=== PATIENT | male | born 1995 | race Caucasian/White ===

== ENCOUNTER 2022-01-21 13:27 | Emergency (ER) | payer OTHER, SELFPAY ==
--- NOTE | ~2022-01-21 | CT_ITS ---
EXAMINATION: CT brain wo con INDICATION: Headache COMPARISON: None TECHNIQUE: Standard unenhanced head CT. The dose-length product (DLP) was 605.33 mGy-cm. The mA was a djusted according to patient size. Iterative reconstruction technique was employed. FINDINGS: There is no intracranial hemorrhage, acute infarction, or abnormal mass lesion. The ventric les are normal. There is no abnormal mass effect or midline shift. The cuellar-white matter differentiat ion is normal. The basal cisterns are patent. The orbits are normal. The paranasal sinuses, mastoids and calvarium are normal. IMPRESSION: 1. No acute intracranial abnormality. Reviewed, dictated and finalized at location F.
[2022-01-21 13:35] VITALS: BP 148/95; PULSE 87; RESP 16; TEMP 36.8; O2SAT 100
--- NOTE | 2022-01-21 15:16 | ED.HA ---
HPI - Headache General Chief Complaint: Headache Stated Complaint: headache Time Seen by Provider: 01/21/22 15:01 History of Present Illness HPI Narrative: 26-year-old male presents emergency room for evaluation of gradual onset right frontal headache. Patient states headache began 6 days ago [place] Patient states that headache is sensitive to light and is not associated with any nausea. Patient denies any injury or trauma. Patient states that he has been seen by his primary care physician and was prescribed meloxicam without any relief of symptoms. Patient describes the pain as sharp and throbbing. No visual or hearing changes Related Data Allergies Allergy/AdvReac Type Severity Reaction Status Date / Time No Known Allergies Allergy Unverified 01/13/17 07:24 Review of Systems Review of Systems: CONSTITUTIONAL: Denies fever, chills, or sweats. EYES: Denies visual changes, redness, or discharge. ENT: Denies rhinorrhea, congestion, sore throat, or otalgia. CARDIOVASCULAR: Denies chest pain, palpitations, or edema. RESPIRATORY: Denies cough or dyspnea. GASTROINTESTINAL: Denies abdominal pain, nausea, vomiting, or diarrhea. GENITOURINARY: Denies dysuria or hematuria. SKIN: Denies rash or itching. MUSCULOSKELETAL: Denies back pain, joint pain, or myalgia. NEUROLOGIC: Reports headache PSYCHIATRIC: Denies anxiety or depression. Exam Narrative: GENERAL: Well-appearing, well-nourished, no physical limitations, and in no acute distress. HEAD: Normocephalic, atraumatic. EYES: Conjunctivae normal, PERRLA and EOMI. NECK: Supple. No meningeal signs. CHEST: Clear to auscultation. No respiratory distress. No wheezes rales or rhonchi. No tenderness. HEART: Regular rate and rhythm. No murmur heard. Normal peripheral pulses. BACK: No CVA tenderness; No cervical/thoracic/lumbar tenderness, step-offs, bony abnormality; FROM EXTREMITIES: Normal range of motion. No edema. No clubbing or cyanosis SKIN: Warm, dry, no rash. No noted wounds NEURO: No focal deficits. Alert and oriented x3. MAEW. CN's II-XI intact bilaterally, normal gait. PSYCH: Cooperative. Normal mood and affect. Course Vital Signs Vital signs: Vital Signs Temperature 36.8 C 01/21/22 13:35 Pulse Rate 87 01/21/22 13:35 Respiratory Rate 16 01/21/22 13:35 Blood Pressure 148/95 H 01/21/22 13:35 Pulse Oximetry 100 01/21/22 13:35 Oxygen Delivery Room Air 01/21/22 13:35 Temperature 36.8 C 01/21/22 13:35 Pulse Rate 87 01/21/22 13:35 Respiratory Rate 16 01/21/22 13:35 Blood Pressure 148/95 H 01/21/22 13:35 Pulse Oximetry 100 01/21/22 13:35 Oxygen Delivery Room Air 01/21/22 13:35 MDM - Headache MDM Narrative Medical decision making narrative: 26-year-old male presents to the emergency room with a headache most consistent with benign headache likely due to tension. There is no headache red flags. Neurological exam was negative for meningismus, altered mental status or any focal neurological findings. CT scan showed no acute intracranial abnormalities. Patient responded well to a headache cocktail. Lab Data Result diagrams: 01/21/22 15:26 Labs: Lab Results 01/21/22 01/21/22 Range/Units 15:26 15:26 WBC 9.1 (4.5-10.0) K/mm3 RBC 5.27 (4.6-6.20) M/mm3 Hgb 15.6 (14.0-18.0) g/dL Hct 46.2 (42.0-52.0) % MCV 87.7 (80-100) fl MCH 29.6 (26-34) pg MCHC 33.8 (32-36) g/dl RDW 13.0 (11.5-14.5) % Plt Count 244 (150-375) k/mm3 MPV 9.6 (7.4-10.4) fl Immature Gran % (Auto) 0.2 (0-0.5) % Neut % (Auto) 64.9 (45.5-73.1) % Lymph % (Auto) 24.2 (18.3-44.2) % Baker % (Auto) 9.9 H (2.6-8.5) % Eos % (Auto) 0.2 (0-4.4) % Baso % (Auto) 0.6 (0.2-1.2) % Lymph # (Auto) 2.20 (0.9-3.2) K/mm3 Baker # (Auto) 0.9 H (0.1-0.6) K/mm3 Eos # (Auto) 0.0 (0-0.3) K/mm3 Baso # (Auto) 0.1 (0.0-0.1) K/mm3 Abs Immat Gran (auto) 0.02
[2022-01-21 15:32] LABS: Basophils Absolute Auto 0.1 K/mm3 (0.0-0.1); Basophils Percent Auto 0.6 % (0.2-1.2); Eosinophils Percent Auto 0.2 % (0-4.4); Hematocrit 46.2 % (42.0-52.0); Hemoglobin 15.6 g/dL (14.0-18.0); Immature Granulocyte Absolute 0.02 K/mm3 (0.00-0.031); Immature Granulocyte Percent A 0.2 % (0-0.5); Lymphocytes Percent Auto 24.2 % (18.3-44.2); Mean Corpuscular HGB Conc 33.8 g/dl (32-36); Mean Corpuscular Hemoglobin 29.6 pg (26-34); Mean Corpuscular Volume 87.7 fl (80-100); Mean Platelet Volume 9.6 fl (7.4-10.4); Monocytes Absolute Auto 0.9 K/mm3 (0.1-0.6); Monocytes Percent Auto 9.9 % (2.6-8.5); Neutrophils Absolute Auto 5.9 K/mm3 (1.3-6.7); Neutrophils Percent Auto 64.9 % (45.5-73.1); Platelet Count Result 244 k/mm3 (150-375); Red Blood Count 5.27 M/mm3 (4.6-6.20); White Blood Count 9.1 K/mm3 (4.5-10.0)
[2022-01-21] MEDS: SODIUM CHLORIDE 0.9% IV 1,000 ML 999 ML IV CONT (15:50)
[2022-01-21] MEDS: METOCLOPRAMIDE HCL INJ 10 MG/2 ML VIAL IV PUSH (15:52)
[2022-01-21] MEDS: KETOROLAC 30 MG/ML VIAL (*BKC) IV PUSH (15:52)
[2022-01-21] MEDS: methylPREDNISolone SOD SUCC 125 MG VIAL IV PUSH (15:52)
[2022-01-21] MEDS: diphenhydrAMINE HCl INJ 50 MG/ML VIAL 25 MG IV PUSH (15:53)
--- NOTE | 2022-01-21 16:01 | PC.NURSE ---
patient off unit to CT.
[2022-01-21 16:21] LABS: Erythrocyte Sedimentation Rate 13 mm/hr (0-20)
[2022-01-21 18:43] VITALS: BP 136/82; PULSE 85; RESP 16; O2SAT 99
== END 2022-01-21 18:46 | disposition home or self-care (01) ==
PROVIDERS: Emergency Provider Nurse Practitioner Family; PCP Family Medicine
DX: R51.9 Headache, unspecified (principal)
CPT/HCPCS: 36415; 70450; 85025; 85652; 96361; 96374; 96375; 99284; J1200; J1885; J2765; J2930; J7030